=== PATIENT | female | born 1940 | race Caucasian/White ===

== ENCOUNTER 2022-02-28 09:30 | Outpatient (CLI) | payer MEDICARE, OTHER ==
[2022-02-28] MEDS ORDERED: Iopamidol 370 76% 100 ML VIAL ONE (15:55)
== END 2022-02-28 09:31 | disposition home or self-care (01) ==
LOC: CSHCT 09:30
PROVIDERS: ATTEND Nurse Practitioner Family
DX: I77.9 Disorder of arteries and arterioles, unspecified (principal); I65.23 Occlusion and stenosis of bilateral carotid arteries
CPT/HCPCS: 70498; 82565; Q9967

== ENCOUNTER 2022-08-11 11:29 | Outpatient (CLI) | payer MEDICARE, OTHER | END 2022-08-11 11:30 | disposition home or self-care (01) | LOC: CSHMAMMO 11:29 | PROVIDERS: ATTEND Family Medicine | DX: Z13.820 Encounter for screening for osteoporosis (principal); M85.851 Other specified disorders of bone density and structure, right thigh; M85.852 Other specified disorders of bone density and structure, left thigh; Z78.0 Asymptomatic menopausal state | CPT/HCPCS: 77080 ==

== ENCOUNTER 2023-08-03 12:40 | Outpatient (CLI) | payer MEDICARE, OTHER | END 2023-08-03 12:41 | disposition home or self-care (01) | LOC: CSHRAD 12:40 | PROVIDERS: ATTEND Family Medicine | DX: M12.9 Arthropathy, unspecified (principal); M47.816 Spondylosis without myelopathy or radiculopathy, lumbar region; M41.86 Other forms of scoliosis, lumbar region; M43.16 Spondylolisthesis, lumbar region | CPT/HCPCS: 72110 ==